=== PATIENT | female | born 1965 | race Caucasian/White ===

== ENCOUNTER 2024-02-02 20:57 | Emergency (ER) | payer BC ==
[2024-02-02] MEDS: Nitroglycerin 0.4 MG Tab.SL SL ONE (21:21)
[2024-02-02] MEDS: Ondansetron 4 MG/2 ML SDV IVPUSH ONE (21:25)
[2024-02-02 21:29] LABS: BASOPHILS PERCENT AUTO 0.8 % (0.0-1.0); EOSINOPHILS PERCENT AUTO 4.3 % (1.0-3.0); HEMATOCRIT 38.2 % (37.0-47.0); HEMOGLOBIN 12.3 g/dL (12.0-16.0); LYMPHOCYTES PERCENT AUTO 25.2 % (20.5-50.1); MEAN CORPUSCULAR HEMOGLOBIN 28.3 pg (27.0-34.0); MEAN CORPUSCULAR HGB CONC 32.2 g/dL (33.0-35.0); MEAN CORPUSCULAR VOLUME 87.8 fL (80-100); MONOCYTES PERCENT AUTO 7.1 % (2-8); NEUTROPHILS PERCENT AUTO 62.6 % (42.2-75.2); PLATELET COUNT,PLT 344 10^3/uL (150-450); RED BLOOD CELL COUNT 4.35 10^6/uL (4.2-5.4); WHITE BLOOD CELL COUNT,WBC 9.1 10^3/uL (5.0-10.0)
[2024-02-02 21:42] LABS: A/G RATIO 0.9; ALBUMIN 3.6 g/dL (3.4-5.0); ANION GAP 12.8 mEq/L (7-13); BILIRUBIN TOTAL 0.2 mg/dL (0.2-1.0); BUN/CREATININE RATIO 19.5 (No establ ref range); CALCIUM 9.1 mg/dL (8.5-10.1); CREATININE 2.26 mg/dL (0.55-1.02); EST CRCL DRUG DOSING (CG) 20.22 mL/min; INR 2.5 (0.9-1.2); POTASSIUM,K 4.8 mmol/L (3.5-5.1); PROTEIN TOTAL,TP 7.4 g/dL (6.4-8.2); PROTHROMBIN TIME 24.7 SEC (9.0-12.0); PTT,PARTIAL THROMBOPLSTIN TIME 31.6 SEC (22.0-34.0)
[2024-02-02] MEDS: Sodium Chloride 0.9% 500 ML IV ONE (22:04)
[2024-02-02] MEDS: Aspirin 81 MG Tab.Chew PO ONE (22:07)
[2024-02-02 23:40] VITALS: BP 134/64; PULSE 79
== END 2024-02-02 23:39 | disposition home or self-care (01) ==
LOC: DL.ED 20:57
DX: R07.89 Other chest pain (principal); E78.00 Pure hypercholesterolemia, unspecified; I10 Essential (primary) hypertension; I25.10 Atherosclerotic heart disease of native coronary artery without angina pectoris; K21.9 Gastro-esophageal reflux disease without esophagitis; E11.9 Type 2 diabetes mellitus without complications; Z79.82 Long term (current) use of aspirin; Z79.2 Long term (current) use of antibiotics; Z79.899 Other long term (current) drug therapy; Z88.8 Allergy status to other drugs, medicaments and biological substances
CPT/HCPCS: 36415; 71046; 80053; 83880; 84484; 85025; 85610; 85730; 93005; 96361; 96374; 99285; A9270; J2405; J7040

== ENCOUNTER 2024-12-15 17:58 | Emergency (ER) | payer BC ==
[2024-12-15] MEDS ORDERED: Sodium Chloride 0.9% 10 ML Syringe FLUSH PRN (18:21)
[2024-12-15] MEDS: Sodium Chloride 0.9% 1,000 ML IV ONE (18:30)
[2024-12-15 19:04] VITALS: BP 128/60; PULSE 72
== END 2024-12-15 19:02 | disposition home or self-care (01) ==
LOC: DL.ED 17:58
DX: A08.4 Viral intestinal infection, unspecified (principal); R19.7 Diarrhea, unspecified; I12.9 Hypertensive chronic kidney disease with stage 1 through stage 4 chronic kidney disease, or unspecified chronic kidney disease; I25.10 Atherosclerotic heart disease of native coronary artery without angina pectoris; E11.9 Type 2 diabetes mellitus without complications; E78.00 Pure hypercholesterolemia, unspecified; N18.9 Chronic kidney disease, unspecified; Z88.8 Allergy status to other drugs, medicaments and biological substances; Z79.899 Other long term (current) drug therapy; Z79.1 Long term (current) use of non-steroidal anti-inflammatories (NSAID); Z79.01 Long term (current) use of anticoagulants; Z79.82 Long term (current) use of aspirin
CPT/HCPCS: 96360; 99283; J7030

== ENCOUNTER 2024-12-19 16:18 | Emergency (ER) | payer BC ==
[2024-12-19] MEDS ORDERED: Sodium Chloride 0.9% 10 ML Syringe FLUSH PRN (16:38)
[2024-12-19] MEDS: Sodium Chloride 0.9% 1,000 ML IV ONE (17:00)
[2024-12-19 17:05] LABS: HEMATOCRIT 43.5 % (37.0-47.0); HEMOGLOBIN 14.2 g/dL (12.0-16.0); MEAN CORPUSCULAR HEMOGLOBIN 28.9 pg (27.0-34.0); MEAN CORPUSCULAR HGB CONC 32.6 g/dL (33.0-35.0); MEAN CORPUSCULAR VOLUME 88.6 fL (80-100); PLATELET COUNT,PLT 354 10^3/uL (150-450); RED BLOOD CELL COUNT 4.91 10^6/uL (4.2-5.4); WHITE BLOOD CELL COUNT,WBC 13.9 10^3/uL (5.0-10.0)
[2024-12-19 17:25] LABS: BASOPHILS PERCENT AUTO 0.2 % (0.0-1.0); EOSINOPHILS PERCENT AUTO 1.9 % (1.0-3.0); LYMPHOCYTES PERCENT AUTO 17.1 % (20.5-50.1); MONOCYTES PERCENT AUTO 8.8 % (2-8)
[2024-12-19 17:39] LABS: ANION GAP 14.1 mEq/L (7-13); BILIRUBIN TOTAL 0.2 mg/dL (0.2-1.0); BUN/CREATININE RATIO 17.3 (No establ ref range); CALCIUM 8.9 mg/dL (8.5-10.1); CREATININE 2.08 mg/dL (0.55-1.02); EST CRCL DRUG DOSING (CG) 21.7 mL/min; POTASSIUM,K 4.1 mmol/L (3.5-5.1); PROTEIN TOTAL,TP 6.8 g/dL (6.4-8.2)
[2024-12-19 17:43] LABS: A/G RATIO 0.79
[2024-12-19 17:48] VITALS: BP 145/81; PULSE 79
[2024-12-19 17:49] LABS: APPEARANCE,URINE SLIGHTLY CLOUDY (CLEAR); BILIRUBIN,URINE NEGATIVE (NEGATIVE); COLOR,URINE YELLOW (YELLOW); GLUCOSE,URINE NEGATIVE (NEGATIVE); KETONES,URINE NEGATIVE (NEGATIVE); LEUKOCYTE ESTERASE,URINE SMALL (NEGATIVE); NITRITE,URINE NEGATIVE (NEGATIVE); OCCULT BLOOD,URINE TRACE-INTACT (NEGATIVE); PH,URINE 5.5 (5.0-9.0); PROTEIN,URINE TRACE (NEGATIVE); UROBILINOGEN,URINE 0.2 mg/dL (0.2-1.0)
[2024-12-19 17:59] LABS: BACTERIA,URINE MANY /HPF (0-FEW/HPF); EPITHELIAL CELLS,URINE MODERATE /HPF (NOT SEEN); MUCUS,URINE FEW /LPF (NOT SEEN); WBC,URINE 20-30 /HPF (0-5/HPF)
[2024-12-19 20:41] LABS: LYMPHOCYTES PERCENT MAN 14 % (20-50); MONOCYTES PERCENT MAN 6 % (2-8); SEG NEUTROPHILS PERCENT MAN 80 % (42-75)
== END 2024-12-19 18:21 | disposition home or self-care (01) ==
LOC: DL.ED 16:18
DX: R19.7 Diarrhea, unspecified (principal); E86.0 Dehydration; I12.9 Hypertensive chronic kidney disease with stage 1 through stage 4 chronic kidney disease, or unspecified chronic kidney disease; N18.4 Chronic kidney disease, stage 4 (severe); I25.10 Atherosclerotic heart disease of native coronary artery without angina pectoris; I25.2 Old myocardial infarction; E11.22 Type 2 diabetes mellitus with diabetic chronic kidney disease; E78.00 Pure hypercholesterolemia, unspecified; K21.9 Gastro-esophageal reflux disease without esophagitis; Z95.2 Presence of prosthetic heart valve; Z88.8 Allergy status to other drugs, medicaments and biological substances; Z79.4 Long term (current) use of insulin; Z79.82 Long term (current) use of aspirin; Z79.01 Long term (current) use of anticoagulants; Z79.899 Other long term (current) drug therapy
CPT/HCPCS: 36415; 80053; 81001; 85025; 87045; 87086; 87328; 87329; 87899; 96360; 99284; J7030; 87046

== ENCOUNTER 2025-02-27 01:51 | Emergency (ER) | payer BC ==
[2025-02-27 02:32] LABS: BASOPHILS PERCENT AUTO 0.3 % (0.0-1.0); EOSINOPHILS PERCENT AUTO 2.5 % (1.0-3.0); LYMPHOCYTES PERCENT AUTO 5.9 % (20.5-50.1); MONOCYTES PERCENT AUTO 6.0 % (2-8); NEUTROPHILS PERCENT AUTO 85.3 % (42.2-75.2); PLATELET COUNT,PLT 237 10^3/uL (150-450); RED BLOOD CELL COUNT 3.51 10^6/uL (4.2-5.4); WHITE BLOOD CELL COUNT,WBC 10.2 10^3/uL (5.0-10.0)
[2025-02-27 02:35] VITALS: BP 149/61; PULSE 78
[2025-02-27] MEDS: GI Cocktail Oral Solution 30 ML PO ONE (02:38)
[2025-02-27 02:50] LABS: B-TYPE NATRIURETIC PEPTIDE,BNP 335.0 pg/ml (0-100)
[2025-02-27 02:52] LABS: A/G RATIO 0.9; ALANINE AMINOTRANSFERASE,ALT 17.0 U/L (14-59); ASPARTATE AMNIOTRANSFERASE,AST 12.0 U/L (15-37); BILIRUBIN TOTAL 0.4 mg/dL (0.2-1.0); BLOOD UREA NITROGEN,BUN 21.0 mg/dL (7-18); CARBON DIOXIDE,CO2 25.0 mmol/L (21-32); CHLORIDE,CL 101.0 mmol/L (98-107); CREATININE 1.45 mg/dL (0.55-1.02); EST CRCL DRUG DOSING (CG) 31.13 mL/min; ESTIMATED GFR 41.0 mL/min (>=60); GLUCOSE RANDOM 342.0 mg/dL (70-99); POTASSIUM,K 4.1 mmol/L (3.5-5.1); PROTEIN TOTAL,TP 7.0 g/dL (6.4-8.2); SODIUM,NA 136.0 mmol/L (136-145)
[2025-02-27] MEDS ORDERED: Insulin Regular, Human 100 Units/ML 10 ML Vial IV ONE (03:04)
[2025-02-27] MEDS: Furosemide 40 MG/4 ML VIAL IVPUSH ONE (03:14)
[2025-02-27] MEDS: Insulin Regular, Human 100 Units/ML 10 ML Vial SUBCUT ONE (03:15)
== END 2025-02-27 04:22 | disposition home or self-care (01) ==
LOC: DL.ED 01:51
DX: R07.89 Other chest pain (principal); I25.10 Atherosclerotic heart disease of native coronary artery without angina pectoris; I25.2 Old myocardial infarction; I12.9 Hypertensive chronic kidney disease with stage 1 through stage 4 chronic kidney disease, or unspecified chronic kidney disease; N18.9 Chronic kidney disease, unspecified; E11.22 Type 2 diabetes mellitus with diabetic chronic kidney disease; Z95.2 Presence of prosthetic heart valve; Z88.8 Allergy status to other drugs, medicaments and biological substances; Z79.82 Long term (current) use of aspirin; Z79.01 Long term (current) use of anticoagulants; Z79.4 Long term (current) use of insulin; Z79.899 Other long term (current) drug therapy
CPT/HCPCS: 36415; 71045; 80053; 82947; 83690; 83735; 83880; 84484; 85025; 85379; 93005; 93010; 96374; 99284; 99285-25; A9270-GY; J1938